=== PATIENT | female | born 1995 | race Caucasian/White ===

== ENCOUNTER 2016-12-05 11:06 | Emergency (ER) | payer OTHER ==
[~2016-12-05] VITALS: Ht 180.3 cm; Wt 79.5 kg
[2016-12-05] MEDS ORDERED: PROAIR HFA0.09 MG/AC (11:12)
[2016-12-05] MEDS ORDERED: CLARITIN 1010 MG/TAB PO (11:12)
[2016-12-05] MEDS ORDERED: PREDNISONE20 MG PO (13:44)
[2016-12-05 13:54] VITALS: BP 112/65; PULSE 93; TEMP 98.1
== END 2016-12-05 14:07 | disposition home or self-care (01) ==
LOC: COL.ER 11:06
DX: R06.02 Shortness of breath (principal); R42 Dizziness and giddiness; R05 Cough; F41.9 Anxiety disorder, unspecified; R21 Rash and other nonspecific skin eruption; J35.1 Hypertrophy of tonsils; R00.0 Tachycardia, unspecified
CPT/HCPCS: J7512